=== PATIENT | female | born 1985 | race Caucasian/White ===

== ENCOUNTER 2016-06-10 15:34 | Emergency (ER) | payer MEDICAID ==
[2016-06-10 15:44] VITALS: BP 128/92
--- NOTE | 2016-06-10 16:37 | ERNOTE ---
Lower Extremity HPI - Narrative Date of Service: 06/10/16 - General Lower Extremities Pain: knee: right Time Seen by Provider: 06/10/16 16:02 Source: patient Exam Limitations: no limitations - Immun/Allergies/Home Medications Immunizations: IMMUNIZATION HX Immunizations Up to Date Yes History of Influenza Vaccine No Hx Pneumococcal Vaccination No Allergies/Adverse Reactions: Allergies Allergy/AdvReac Type Severity Reaction Status Date / Time No Known Allergies Allergy Verified 06/10/16 15:43 Home Medications: HOME MEDICATIONS Cyclobenzaprine HCl [Flexeril] 10 mg PO HS 03/04/16 [Last Taken Unknown] Gabapentin [Neurontin] 300 mg PO BID 03/04/16 [Last Taken Unknown] Ibuprofen [Motrin] 600 mg PO Q6H PRN #40 tab 03/04/16 [Last Taken Unknown] LORazepam [Ativan] 1 mg PO HS PRN 03/04/16 [Last Taken Unknown] Sertraline HCl [Zoloft] 100 mg PO DAILY 03/04/16 [Last Taken Unknown] Ibuprofen [Motrin] 800 mg PO TID PRN #60 tab 06/10/16 [Last Taken Unknown] - History of Present Illness Narrative: Pt. comes in with c/o R knee pain and swelling after she heard a loud pop when twisting last night to tuck her child into bed. Pt. states that it impairs her ability to ambulate and squat and worsens with ambulation and palpation. Pt. states that she has a history of strains and sprain chronically in her L arma dn B hips. Pt. states that her joints pop and click when she moves all of the time without pain. Review of Systems - Review of Systems Constitutional: Present: no symptoms reported. Absent: recent illness, fever, chills, fatigue, malaise EYE: Present: no symptoms reported ENT: Present: no symptoms reported Respiratory: Present: no symptoms reported. Absent: shortness of breath, cough , wheezing Cardiology: Present: no symptoms reported. Absent: chest pain, palpitations, edema Gastrointestinal/Abdominal: Present: no symptoms reported Genitourinary: Present: no symptoms reported Musculoskeletal: Present: joint pain - R knee Skin: Present: no symptoms reported Neurological: Present: no symptoms reported. Absent: headache, dizziness/light- headedness, numbness, tingling All Other Systems: All systems neg except as marked - Patient's Past Medical History Patient History - Medical: Anxiety Patient History - Cardiac/Respiratory: No pertinent hx Patient History - Cancer: No Hx of Cancer Patient History - Surgical Procedures: Appendectomy, - Family History Father Family History - Cardiac/Respiratory: Hypertension - Social History Living Situations: home Alcohol Use: none Drug Use: none Physical Exam - Physical Exam General Appearance: Present: wd/wn, alert, no apparent distress Eye Exam: Normal inspection: bilateral, PERRL: bilateral, EOMI: bilateral Ears, Nose, Throat: Present: normal ENT inspection, hearing grossly normal, normal pharynx Neck: Present: normal inspection, nontender. Absent: lymphadenopathy (R), lymphadenopathy (L) Respiratory: Present: no respiratory distress, normal breath sounds, no accessory muscle use, chest nontender, lungs clear Cardiovascular/Chest: Present: regular rate, rhythm, no murmur, normal peripheral pulses Back Exam: Present: normal inspection Extremity Exam: Present: normal inspection, non-tender, no edema, normal range of motion, joint swelling - R knee, other - R knee with patellar tendon pain and popping with flexion Neurological Exam: Present: alert, oriented, normal mood/affect, no motor/ sensory deficits, division chair II-XII nml as tested, normal cerebellar test Skin Exam: Present: normal color, warm/dry. Absent: pallor, skin rash ED Progress - Vital Signs Patient's Vital Signs:: I have reviewed the patient's vital signs. Vital Signs: Vital Signs 06/10/16 15:40 Temperature 36.6 C Pulse Rate 98 Respiratory 12 Rate Blood Pressure 128/92 O2 Sat by Pulse 95 Oximetry - X-Ray X-Ray #1 X-Ray: knee Interpretation: Reviewed by me X-ray Comments: no acute osseous abnormality - Progress/Reassessment Chief Complaint: Lower Extremity Pain/ Injury Departure Clinical Impression: Patellar tendon strain Qualifiers: Encounter type: initial encounter Laterality: right Qualified Code(s): S86.811A - Strain of other muscle(s) and tendon(s) at lower leg level, right leg , initial encounter Injury of meniscus of right knee Qualifiers: Encounter type: initial encounter Qualified Code(s): S83.91XA - Sprain of unspecified site of right knee, initial encounter - Departure Disposition: Home self-care Condition: Good Instructions: Meniscus Tear, Tendon Injury Additional Instructions: Please follow up with orthopedics by calling office tomorrow for appointment. Referrals: Rose Huynh CNP [Primary Care Provider] - Prescriptions: Ibuprofen [Motrin] 800 mg PO TID PRN #60 tab PRN Reason: Pain
== END 2016-06-10 17:05 | disposition home or self-care (01) ==
LOC: ER 15:34
DX: S86.811A Strain of other muscle(s) and tendon(s) at lower leg level, right leg, initial encounter (principal); S83.91XA Sprain of unspecified site of right knee, initial encounter

== ENCOUNTER 2016-07-24 18:15 | Emergency (ER) | payer MEDICAID ==
[2016-07-24 19:10] VITALS: BP 128/77
--- NOTE | 2016-07-24 19:45 | ERNOTE ---
ENT HPI Date of Service: 07/24/16 Presenting Symptoms: other - Sore throat Time Seen by Provider: 07/24/16 19:42 Source: patient, RN notes reviewed Exam Limitations: no limitations - Immun/Allergies/Home Medications Immunizations: IMMUNIZATION HX Immunizations Up to Date No History of Influenza Vaccine No Hx Pneumococcal Vaccination No Allergies/Adverse Reactions: Allergies Allergy/AdvReac Type Severity Reaction Status Date / Time No Known Allergies Allergy Verified 07/29/16 13:42 Home Medications: HOME MEDICATIONS Cyclobenzaprine HCl [Flexeril] 10 mg PO HS 03/04/16 [Last Taken Unknown] Gabapentin [Neurontin] 300 mg PO BID 03/04/16 [Last Taken Unknown] LORazepam [Ativan] 1 mg PO HS PRN 03/04/16 [Last Taken Unknown] Sertraline HCl [Zoloft] 100 mg PO DAILY 03/04/16 [Last Taken Unknown] Amoxicillin 875 mg PO BID #20 tablet 07/29/16 [Last Taken Unknown] Fluticasone Propionate [Flonase] 2 spray NS BID #2 inhaler 07/29/16 [Last Taken Unknown] Naproxen [Naprosyn] 500 mg PO BID #20 tablet 07/29/16 [Last Taken Unknown] Oxycodone HCl/Acetaminophen [Percocet 5-325 mg Tablet] 1 each PO Q8H #10 tablet 07/29/16 [Last Taken Unknown] - History of Present Illness Narrative: 31 y/o female to ED for a sore throat and a "migraine" that began yesterday. Her daughter was diagnosed with strep throat. She has not been taking anything for her symptoms. Date (Duration): 07/23/16 ENT Location: Present: throat Prearrival Treatment: Present: no prearrival treatment Associated Symptoms - ENT: Reports: malaise, sore throat, headache. Denies: fever, poor fluid intake, poor solid intake, cough, nasal congestion/drainage, facial pain/swelling, tooth pain, jaw swelling, ear drainage Prior Treament: Denies: recently seen Review of Systems - Review of Systems Constitutional: Present: See HPI EYE: Present: no symptoms reported ENT: Present: See HPI Respiratory: Absent: shortness of breath, cough Cardiology: Present: no symptoms reported Gastrointestinal/Abdominal: Absent: nausea, vomiting, abdominal pain Genitourinary: Present: no symptoms reported Musculoskeletal: Absent: muscle pain, neck pain Skin: Absent: rash, lesions Neurological: Present: See HPI Endocrine: Present: no symptoms reported Hematologic/Lymphatic: Present: no symptoms reported Psych: Present: no symptoms reported - Patient's Past Medical History Patient History - Medical: Anxiety Patient History - Cardiac/Respiratory: No pertinent hx Patient History - Cancer: No Hx of Cancer Patient History - Surgical Procedures: Appendectomy, Patient History - Other: None LMP (females 10-50): 3 weeks - Family History Father Family History - Cardiac/Respiratory: Hypertension - Social History Living Situations: home Abuse History: No History of abuse Psych History: Hx of Anxiety Smoking Status: Former smoker Have you smoked in the past 12 months: No Alcohol Use: none Drug Use: none - Immunizations Immunizations Up to Date: No Hx Pneumococcal Vaccination: No History of Influenza Vaccine: No Physical Exam - Physical Exam General Appearance: Present: wd/wn, alert, no apparent distress Eye Exam: Normal inspection: bilateral Ears, Nose, Throat: Present: normal ENT inspection Neck: Present: normal inspection, nontender, supple, full range of motion Respiratory: Present: no respiratory distress, normal breath sounds, no accessory muscle use, lungs clear Cardiovascular/Chest: Present: regular rate, rhythm, no murmur Gastrointestinal/Abdominal: Present: nontender, nondistended, soft Extremity Exam: Present: normal inspection Neurological Exam: Present: alert, oriented, normal mood/affect, no motor/ sensory deficits Skin Exam: Present: normal color, warm/dry ED Progress - Results and Orders Patient's Lab Results:: I have reviewed the patient's lab results. - Vital Signs Patient's Vital Signs:: I have reviewed the patient's vital signs. Vital Signs: Vital Signs 07/24/16 19:05 Temperature 36.8 C Pulse Rate 78 Respiratory 18 Rate Blood Pressure 128/77 O2 Sat by Pulse 100 Oximetry - Progress/Reassessment Chief Complaint: Sore Throat Progress:: Unchanged Departure Clinical Impression: Acute pharyngitis Qualifiers: Pharyngitis/tonsillitis etiology: unspecified etiology Qualified Code(s): J02.9 - Acute pharyngitis, unspecified - Departure Disposition: Home self-care Condition: Good Instructions: Sore Throat, [id number] Referrals: Rose Huynh CNP [Primary Care Provider] -
[2016-07-24] MEDS ORDERED: PENICILLIN G BENZATHINE 2 ML SYRG IM ONE ×2 (20:23→20:35)
== END 2016-07-24 20:40 | disposition home or self-care (01) ==
LOC: ER 18:15
DX: J02.9 Acute pharyngitis, unspecified (principal); Z87.891 Personal history of nicotine dependence

== ENCOUNTER 2016-07-29 13:32 | Emergency (ER) | payer MEDICAID ==
[2016-07-29 13:42] VITALS: BP 121/78
--- NOTE | 2016-07-29 14:31 | ERNOTE ---
ENT HPI Date of Service: 07/29/16 Presenting Symptoms: other - R ear pain Time Seen by Provider: 07/29/16 14:14 Source: patient Exam Limitations: no limitations - Immun/Allergies/Home Medications Immunizations: IMMUNIZATION HX Immunizations Up to Date No History of Influenza Vaccine No Hx Pneumococcal Vaccination No Allergies/Adverse Reactions: Allergies Allergy/AdvReac Type Severity Reaction Status Date / Time No Known Allergies Allergy Verified 07/29/16 13:42 Home Medications: HOME MEDICATIONS Cyclobenzaprine HCl [Flexeril] 10 mg PO HS 03/04/16 [Last Taken Unknown] Gabapentin [Neurontin] 300 mg PO BID 03/04/16 [Last Taken Unknown] LORazepam [Ativan] 1 mg PO HS PRN 03/04/16 [Last Taken Unknown] Sertraline HCl [Zoloft] 100 mg PO DAILY 03/04/16 [Last Taken Unknown] Amoxicillin 875 mg PO BID #20 tablet 07/29/16 [Last Taken Unknown] Fluticasone Propionate [Flonase] 2 spray NS BID #2 inhaler 07/29/16 [Last Taken Unknown] Naproxen [Naprosyn] 500 mg PO BID #20 tablet 07/29/16 [Last Taken Unknown] Oxycodone HCl/Acetaminophen [Percocet 5-325 mg Tablet] 1 each PO Q8H #10 tablet 07/29/16 [Last Taken Unknown] - History of Present Illness Narrative: Patient was last seen on Wednesday due to an ear infection. Patient returns today due to pain on the R ear. Patient stated that she didn't get any prescription for pain or for her infection. Severity: Present: severe ENT Location: Present: ear (R) Prearrival Treatment: Present: no prearrival treatment Modifying Factors - Improves: Reports: nothing Modifying Factors - Worsens: Reports: nothing Associated Symptoms - ENT: Denies: fever, malaise, poor fluid intake, poor solid intake, cough, voice change, sore throat, drooling, nasal congestion/ drainage, facial pain/swelling, tooth pain, jaw swelling, change in hearing, ear drainage, foreign body, trauma Prior Treament: Reports: recently seen - Patient reported she was given a shot in her last visit of antibiotics. Review of Systems - Review of Systems Constitutional: Absent: fever, chills, diaphoresis, weakness, fatigue, malaise, weight loss, fussy EYE: Present: no symptoms reported ENT: Present: ear pain. Absent: ear discharge Respiratory: Present: no symptoms reported Cardiology: Present: no symptoms reported Gastrointestinal/Abdominal: Present: no symptoms reported Genitourinary: Present: no symptoms reported Musculoskeletal: Present: no symptoms reported Skin: Present: no symptoms reported Neurological: Present: no symptoms reported Endocrine: Present: no symptoms reported Hematologic/Lymphatic: Present: no symptoms reported Psych: Present: no symptoms reported All Other Systems: All systems neg except as marked - Patient's Past Medical History Patient History - Medical: Anxiety Patient History - Cardiac/Respiratory: No pertinent hx Patient History - Cancer: No Hx of Cancer Patient History - Surgical Procedures: Appendectomy, Patient History - Other: None - Family History Father Family History - Cardiac/Respiratory: Hypertension Family History - Cancer: No pertinent family hx - Social History Living Situations: home Abuse History: No History of abuse Psych History: Hx of Anxiety Alcohol Use: none Drug Use: none - Immunizations Immunizations Up to Date: No Hx Pneumococcal Vaccination: No History of Influenza Vaccine: No Physical Exam - Physical Exam General Appearance: Present: wd/wn, alert, no apparent distress Eye Exam: Normal inspection: bilateral, PERRL: bilateral, EOMI: bilateral Ears, Nose, Throat: Present: normal ENT inspection, abnormal TM (R) - There is dullness and mild erythema with some fluids on the back of the TM area, normal pharynx Neck: Present: normal inspection, nontender Respiratory: Present: no respiratory distress, normal breath sounds, no accessory muscle use, chest nontender, lungs clear Cardiovascular/Chest: Present: regular rate, rhythm, no murmur, normal peripheral pulses Gastrointestinal/Abdominal: Present: normal bowel sounds, nontender, nondistended, soft, no organomegaly Back Exam: Present: normal inspection, normal range of motion, no CVA tenderness , no vertebral tenderness Extremity Exam: Present: normal inspection, non-tender, no edema, normal range of motion Neurological Exam: Present: alert, oriented, normal mood/affect, no motor/ sensory deficits Skin Exam: Present: normal color, warm/dry Lymphatic Exam: Present: no adenopathy ED Progress - Date and Time Seen: Date and Time: 07/29/16 14:26 Patient with no distress. Patient will be given pain control and antibiotics. Patient is to follow up with her PCP. - Vital Signs Patient's Vital Signs:: I have reviewed the patient's vital signs. Vital Signs: Vital Signs 07/29/16 13:38 Temperature 36.1 C L Pulse Rate 73 Respiratory 12 Rate Blood Pressure 121/78 O2 Sat by Pulse 98 Oximetry - Progress/Reassessment Chief Complaint: Earache - Transfer of Care Expected Disposition: Discharge Departure Clinical Impression: Ear pain, right Otitis media Qualifiers: Otitis media type: unspecified Laterality: right Chronicity: unspecified Qualified Code(s): H66.91 - Otitis media, unspecified, right ear - Departure Disposition: Home self-care Condition: Stable Instructions: Otitis Media, Adult, [id number] Referrals: Rose Huynh, BASSAM [Primary Care Provider] - Prescriptions: Amoxicillin 875 mg PO BID #20 tablet Fluticasone Propionate [Flonase] 2 spray NS BID #2 inhaler Naproxen [Naprosyn] 500 mg PO BID #20 tablet Oxycodone HCl/Acetaminophen [Percocet 5-325 mg Tablet] 1 each PO Q8H #10 tablet
== END 2016-07-29 14:50 | disposition home or self-care (01) ==
LOC: ER 13:32
DX: H66.91 Otitis media, unspecified, right ear (principal); H92.01 Otalgia, right ear; F41.9 Anxiety disorder, unspecified

== ENCOUNTER 2016-12-24 11:14 | Emergency (ER) | payer MEDICAID ==
[2016-12-24 11:24] VITALS: BP 109/69
--- NOTE | 2016-12-24 11:57 | ERNOTE ---
Headache ER HPI - Narrative Date of Service: 12/24/16 - General Presenting Symptoms: "migraine" Time Seen by Provider: 12/24/16 11:51 Source: patient Exam Limitations: no limitations - Immun/Allergies/Home Medications Immunizations: IMMUNIZATION HX Immunizations Up to Date Yes History of Influenza Vaccine Yes Hx Pneumococcal Vaccination No Allergies/Adverse Reactions: Allergies No Known Allergies Allergy (Verified 12/24/16 11:25) Home Medications: HOME MEDICATIONS Gabapentin [Neurontin] 600 mg PO BID 03/04/16 [Last Taken Unknown] Fluticasone Propionate [Flonase] 2 spray NS BID #2 inhaler 07/29/16 [Last Taken Unknown] LORazepam [Ativan] 1 mg PO TID PRN 12/24/16 [Last Taken Unknown] Promethazine HCl [Phenergan (Promethazine)] 25 mg PO Q6H PRN #20 tab 12/24/16 [ Last Taken Unknown] buPROPion HCL [Wellbutrin] 300 mg PO DAILY 12/24/16 [Last Taken Unknown] - Pain Pain Score: 9 - History of Present Illness Narrative: 31yo, F, presents to the ER for evaluation of "migraine", which starts near her R. eye and radiates to the back of her head. She has hx of migraines in the past. Date (Duration): 12/21/16 Activity at onset: other - normal ADLs Timing of Headache: gradual, worse Context Headache: Absent: tick bite, sick contact, recent head injury < 24 hrs ago, recent head injury > 24 hrs, recent travel-outside [place] Headache frequency: Present: similar to previous headache Modifying Factors - (Improves): Reports: rest Modifying Factors - (Worsens): Reports: exposure to light, other - sounds Associated Symptoms: Reports: nausea, other - vision apppears "starry". Denies : fever/chills, vomiting, nasal congestion Exacerbated by:: Reports: light, noise Review of Systems - Review of Systems Constitutional: Absent: fever, chills, fatigue, malaise ENT: Absent: ear pain, nose congestion, sore throat Respiratory: Absent: shortness of breath, cough Gastrointestinal/Abdominal: Present: nausea. Absent: vomiting, abdominal pain Musculoskeletal: Absent: back pain, neck pain Skin: Absent: rash Neurological: Present: headache. Absent: dizziness/light-headedness, weakness, numbness - Patient's Past Medical History Patient History - Medical: Anxiety Patient History - Cardiac/Respiratory: No pertinent hx Patient History - Cancer: No Hx of Cancer Patient History - Surgical Procedures: Appendectomy, Patient History - Other: None - Family History Father Family History - Cardiac/Respiratory: Hypertension Family History - Cancer: No pertinent family hx - Social History Living Situations: home Abuse History: No History of abuse Psych History: Hx of Anxiety Have you smoked in the past 12 months: No Do you dip or chew tobacco: No Alcohol Use: none Drug Use: none - Immunizations Immunizations Up to Date: Yes Hx Pneumococcal Vaccination: No History of Influenza Vaccine: Yes Physical Exam - Physical Exam General Appearance: Present: wd/wn, alert, other - appears uncomfortable Head Exam: Present: normal inspection, no evidence of injury. Absent: tenderness Eye Exam: Normal inspection: bilateral, PERRL: bilateral, EOMI: bilateral - and pain free, Sclera injection: bilateral - absent, Eye drainage: bilateral - absent, Photophobia: bilateral, Other: bilateral - peripheral vision intact Ears, Nose, Throat: Present: normal ENT inspection, normal pharynx. Absent: abnormal TM (R), abnormal TM (L), nasal congestion Neck: Present: normal inspection, nontender, full range of motion. Absent: lymphadenopathy (R), lymphadenopathy (L) Respiratory: Present: no respiratory distress, normal breath sounds, no accessory muscle use. Absent: rales, rhonchi, wheezing Cardiovascular/Chest: Present: regular rate, rhythm, no murmur Neurological Exam: Present: alert, oriented, normal mood/affect, no motor/ sensory deficits - strength 5/5 x4 extremities, polisher and sander II-XII nml as tested. 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 Nurse offered to have pt wait for medication to take effect and see if additional meds needed, but stated she preferred to go home and rest. - Vital Signs Patient's Vital Signs:: I have reviewed the patient's vital signs. Vital Signs: Vital Signs 12/24/16 11:22 Temperature 37.1 C Pulse Rate 73 Respiratory 16 Rate Blood Pressure 109/69 O2 Sat by Pulse 97 Oximetry - Progress/Reassessment Chief Complaint: Headache Progress:: Unchanged Departure Clinical Impression: Migraine headache Qualifiers: Migraine type: without aura Status migrainosus presence: without status migrainosus Intractability: not intractable Qualified Code(s): G43.009 - Migraine without aura, not intractable, without status migrainosus - Departure Disposition: Home self-care Condition: Good Instructions: Migraine Headache, [id number] Additional Instructions: Rest in a cool, dark room Limit exposure to light, loud noises and electronics/TV F/u in ER or with your doctor if symptoms worsen or do not improve Referrals: Rose Huynh CNP [Primary Care Provider] - Prescriptions: Promethazine HCl [Phenergan (Promethazine)] 25 mg PO Q6H PRN #20 tab PRN Reason: nausea/vomiting
[2016-12-24] MEDS ORDERED: diphenhydrAMINE HCL 50 MG/ML VIAL IM ONE (12:05)
[2016-12-24] MEDS ORDERED: KETOROLAC TROMETHAMINE 60 MG/2 ML VIAL IM ONE ×2 (12:05→12:07)
[2016-12-24] MEDS ORDERED: PROMETHAZINE HCL 25 MG/ML AMPUL IM ONE (12:06)
[2016-12-24] MEDS ORDERED: diphenhydrAMINE HCL 50 MG/ML VIAL ONE (12:07)
[2016-12-24] MEDS ORDERED: PROMETHAZINE HCL 25 MG/ML AMPUL ONE (12:08)
== END 2016-12-24 12:49 | disposition home or self-care (01) ==
LOC: ER 11:14
DX: G43.009 Migraine without aura, not intractable, without status migrainosus (principal); F41.8 Other specified anxiety disorders